=== PATIENT | male | born 1995 | race Caucasian/White ===

== ENCOUNTER 2018-01-23 16:40 | Emergency (ER) | payer SELFPAY | END 2018-01-23 17:07 | disposition home or self-care (01) | LOC: BURERS 16:40 | DX: G40.909 Epilepsy, unspecified, not intractable, without status epilepticus (principal); F41.9 Anxiety disorder, unspecified; F17.210 Nicotine dependence, cigarettes, uncomplicated; Z79.899 Other long term (current) drug therapy | CPT/HCPCS: 99283 ==

== ENCOUNTER 2018-09-13 14:44 | Emergency (ER) | payer SELFPAY ==
[2018-09-13] MEDS ORDERED: Lidocaine Viscous Sol 2% 15 ml UD Cup ONE (15:11)
== END 2018-09-13 15:42 | disposition home or self-care (01) ==
LOC: BURERS 14:44
DX: S01.512A Laceration without foreign body of oral cavity, initial encounter (principal); R56.00 Simple febrile convulsions; Z91.14 Patient's other noncompliance with medication regimen; F17.210 Nicotine dependence, cigarettes, uncomplicated; Z79.899 Other long term (current) drug therapy; X58.XXXA Exposure to other specified factors, initial encounter
CPT/HCPCS: 99283

== ENCOUNTER 2018-11-22 18:40 | Emergency (ER) | payer SELFPAY ==
[2018-11-22] MEDS ORDERED: Bupivacaine/Epinephrine 0.5% 10 ML VIAL ONE (19:16)
[2018-11-22] MEDS ORDERED: Adacel (T-DAP) 0.5 ML SYRINGE ONE (19:51)
--- NOTE | 2018-11-22 20:16 | CT ---
CT OF THE BRAIN WITHOUT CONTRAST: 11/22/18 Comparison is made with a 08/13/17 study. The ventricles are normal in size with no shift. No intracranial bleeding or extra-axial hematoma was seen. There is no sign of mass, edema, or stroke. The calvarium appears intact. There is no air flui d level in the sphenoid sinus, and the mastoid air cells are clear. All visible bony structures were unremarkable. An incidental finding is a small mucosal elevation in the lateral wall or the left maxi llary sinus that may be either a mucous retention cyst or polyp. IMPRESSION: No acute intracranial findings. POS: HOME
[2018-11-22] MEDS ORDERED: traMADol HCl 50 MG TAB ONE (20:22)
[2018-11-22] MEDS ORDERED: Ibuprofen 800 MG TAB ONE (20:23)
== END 2018-11-22 20:35 | disposition home or self-care (01) ==
LOC: BURERS 18:40
DX: S01.81XA Laceration without foreign body of other part of head, initial encounter (principal); S01.512A Laceration without foreign body of oral cavity, initial encounter; S60.519A Abrasion of unspecified hand, initial encounter; S80.819A Abrasion, unspecified lower leg, initial encounter; G40.909 Epilepsy, unspecified, not intractable, without status epilepticus; F17.210 Nicotine dependence, cigarettes, uncomplicated; Z79.899 Other long term (current) drug therapy; W18.30XA Fall on same level, unspecified, initial encounter
CPT/HCPCS: 12013; 70450; 90471; 90715; J3490

== ENCOUNTER 2018-12-03 19:19 | Emergency (ER) | payer SELFPAY | END 2018-12-03 19:57 | disposition home or self-care (01) | LOC: BURERS 19:19 | DX: S01.81XD Laceration without foreign body of other part of head, subsequent encounter (principal); G40.909 Epilepsy, unspecified, not intractable, without status epilepticus; F17.210 Nicotine dependence, cigarettes, uncomplicated; Z79.899 Other long term (current) drug therapy ==

== ENCOUNTER 2019-06-29 12:21 | Emergency (ER) | payer SELFPAY ==
[2019-06-29 12:53] LABS: #Basophils 0.1 thou/uL (0.0-0.2); #Eosinphils 0.4 thou/uL (0.0-0.7); #Lymphocytes 2.1 thou/uL (1.20-3.40); #Monocytes 0.6 thou/uL (0.11-0.59); %Eosinophils 4.6 % (0.0-10.0); %Monocytes 7.4 % (0.0-10.0); %Neutrophils 61.1 % (42.0-75.0); Hemoglobin 16.7 g/dL (14.0-18.0); Mean Corpuscular Hemoglobin 30.9 pg (27.0-31.0); Mean Corpuscular Volume 96.6 fL (78.0-98.0); Mean Platelet Volume 7.9 fL (7.4-10.4); Platelet Count 224 thou/uL (130-400); RBC Distribution Width 11.6 % (11.5-14.5); White Blood Cell (WBC) Count 8.2 thou/uL (4.8-10.8)
[2019-06-29 13:07] LABS: ALT (SGPT) 14 U/L (8-55); AST (SGOT) 15 U/L (5-34); Alkaline Phosphatase 47 U/L (40-110); Anion Gap 16 mmol/L (10-20); BUN (Urea Nitrogen) 10 mg/dL (8.9-20.6); Bilirubin, Total 0.3 mg/dL (0.2-1.2); Calc. Creatinine Clearance 0 mL/min (70-130); Calcium 9.6 mg/dL (7.8-10.44); Carbon Dioxide 22 mmol/L (22-29); Chloride 109 mmol/L (98-107); Estimated GFR-MDRD 76; Globulin 3.1 g/dL (2.4-3.5); Glucose 79 mg/dL (70-105); Potassium 4.1 mmol/L (3.5-5.1); Protein, Total 8.1 g/dL (6.0-8.3); Sodium 143 mmol/L (136-145)
--- NOTE | 2019-06-29 13:21 | CT ---
CT BRAIN WITHOUT CONTRASTS: Date: 06-29-2019 FINDINGS: The ventricles are normal in size with no sift. No intracranial bleeding or extraaxial hematoma was s een. There is no sign of mass, stroke, or edema. The skull appears intact. The visible paranasal sinu ses are clear except for some minor mucosal thickening in some of the ethmoid air cells. The mastoid air cells are clear. IMPRESSION: No acute intracranial findings. POS: HOME
--- NOTE | 2019-06-29 13:23 | CT ---
CT OF THE FACIAL BONES: Date: 06-29-[address] of the face was performed for evaluation of trauma. FINDINGS: The orbital rims, zygomatic arches, maxilla, and mandible all appeared intact. No facial fractures we re seen. There is some minor irregularities near the tips of the nasal bones but this does not really appear acute. There is some mild mucosal thickening in some of the ethmoid air cells bilaterally and what is most likely a 1.4 cm retention cyst or small polyp in the left maxillary sinus. Lisa bullo sa of each middle nasal turbinate was noted. IMPRESSION: No acute traumatic findings. POS: HOME
--- NOTE | 2019-06-29 13:26 | CT ---
CT OF THE CERVICAL SPINE: Date: 06-29-[address] of the cervical spine was done following trauma. FINDINGS: No fracture, dislocation, or disc space narrowing was seen at any cervical level. The C1-2 dens dista nce is normal and the soft tissues are normal in thickness. No significant foraminal or central canal stenosis was seen. There was a slight central bulge of the C2-3 and C3-4 discs, but neither appear t o cause any impingement. There is loss of the normal cervical lordosis which may be due to muscle spa sm. The facet joints showed no acute change. IMPRESSION: Straightening of the cervical spine, perhaps due to muscle spasm. Exam otherwise shows no acute findi ng. Preliminary results of all scans on the patient called to Dr. Camilo at 1320, 06-29-2019. POS: HOME
[2019-06-29] MEDS ORDERED: Adacel (T-DAP) 0.5 ML SYRINGE ONE (14:21)
== END 2019-06-29 14:35 | disposition home or self-care (01) ==
LOC: BURERS 12:21
DX: G40.909 Epilepsy, unspecified, not intractable, without status epilepticus (principal); S01.81XA Laceration without foreign body of other part of head, initial encounter; F17.210 Nicotine dependence, cigarettes, uncomplicated; Z79.899 Other long term (current) drug therapy; W19.XXXA Unspecified fall, initial encounter
CPT/HCPCS: 12011; 70450; 70486; 72125; 80053; 85025; 90471; 90715

== ENCOUNTER 2019-10-26 09:45 | Emergency (ER) | payer SELFPAY ==
[2019-10-26] MEDS ORDERED: Lidocaine 2% w/Epinephrine 1:200K 20 ML VIAL ONE (10:17)
--- NOTE | 2019-10-26 11:16 | CT ---
CT BRAIN NONCONTRAST: DATE: 10/26/2019 HISTORY: 24-year-old male status post head trauma, fall, due to seizure FINDINGS: There is no evidence of acute intra-axial or extra-axial hemorrhage. There is no midline shift or any other mass effect. There is no extra-axial fluid collection. There is no evidence of obstructive hydrocephalus. Calvarium is intact. There is focal soft tissue swelling at the left side of the nasio n extending into the left medial supraorbital superficial soft tissues. IMPRESSION: 1. No acute intracranial findings. 2. Left medial supraorbital superficial soft tissue acute contusion/hematoma.
== END 2019-10-26 11:20 | disposition home or self-care (01) ==
LOC: BURERS 09:45
DX: G40.909 Epilepsy, unspecified, not intractable, without status epilepticus (principal); S01.81XA Laceration without foreign body of other part of head, initial encounter; S60.312A Abrasion of left thumb, initial encounter; S60.512A Abrasion of left hand, initial encounter; S60.511A Abrasion of right hand, initial encounter; F17.210 Nicotine dependence, cigarettes, uncomplicated; Z79.899 Other long term (current) drug therapy; W19.XXXA Unspecified fall, initial encounter
CPT/HCPCS: 12013; 70450

== ENCOUNTER 2019-12-24 13:23 | Emergency (ER) | payer SELFPAY ==
[2019-12-24] MEDS ORDERED: Lidocaine 1% w/Epinephrine 1:100K 20 ML VIAL ONE (13:31)
--- NOTE | 2019-12-24 17:02 | RAD ---
RIGHT HAND THREE VIEWS: 12/24/19 No fracture was seen. All bones and joints appear normal at this time. IMPRESSION: No acute findings. POS: HOME
--- NOTE | 2019-12-24 17:02 | RAD ---
LEFT ELBOW FOUR VIEWS: 12/24/19 No fracture or joint effusion was seen. All bones appear intact. IMPRESSION: No acute findings. POS: HOME
== END 2019-12-24 14:24 | disposition home or self-care (01) ==
LOC: BURERS 13:23
DX: R56.9 Unspecified convulsions (principal); S01.81XA Laceration without foreign body of other part of head, initial encounter; S50.02XA Contusion of left elbow, initial encounter; S60.221A Contusion of right hand, initial encounter; S90.812A Abrasion, left foot, initial encounter; F17.210 Nicotine dependence, cigarettes, uncomplicated; Z79.899 Other long term (current) drug therapy; W22.8XXA Striking against or struck by other objects, initial encounter
CPT/HCPCS: 12011

== ENCOUNTER 2021-05-08 21:39 | Emergency (ER) | payer SELFPAY ==
[2021-05-08] MEDS ORDERED: Boostrix 0.5 ML (Tdap) VIAL IM ONE (21:40)
[2021-05-08] MEDS ORDERED: Lidocaine 1% w/Epinephrine 1:100K 20 ML VIAL ONE (21:55)
[2021-05-08] MEDS ORDERED: TETANUS, DIPHTHERIA TOX,ADULT (TDVAX) 0.5 ML VIAL IM ONE (21:55)
[2021-05-08] MEDS ORDERED: Cephalexin 250 MG CAP ONE (21:56)
[2021-05-08] MEDS ORDERED: Bacitracin 1 PK ONE (22:06)
[2021-05-08 23:07] LABS: #Basophils 0.1 thou/uL (0.0-0.2); #Eosinphils 0.3 thou/uL (0.0-0.7); #Lymphocytes 2.3 thou/uL (1.20-3.40); #Neutrophils 9.5 thou/uL (1.40-6.50); %Basophils 0.8 % (0.0-1.0); %Eosinophils 2.5 % (0.0-10.0); %Lymphocytes 17.3 % (21.0-51.0); %Monocytes 7.6 % (0.0-10.0); %Neutrophils 71.8 % (42.0-75.0); Mean Corpuscular HGB CONC 35.1 g/dL (32.0-36.0); Mean Corpuscular Volume 93.9 fL (78.0-98.0); Mean Platelet Volume 7.6 fL (7.4-10.4); Platelet Count 264 thou/uL (130-400); RBC Distribution Width 11.4 % (11.5-14.5); Red Blood Cell (RBC) Count 4.85 mill/uL (4.70-6.10); White Blood Cell (WBC) Count 13.2 thou/uL (4.8-10.8)
[2021-05-08 23:17] LABS: ALT (SGPT) 15 U/L (8-55); AST (SGOT) 20 U/L (5-34); Acetaminophen Less than 6.0 mcg/mL (10.0-30.0); Albumin 4.5 g/dL (3.5-5.0); Alcohol Less than 10 mg/dL (Less than 10); Alkaline Phosphatase 62 U/L (40-110); Anion Gap 16 mmol/L (10-20); BUN (Urea Nitrogen) 17 mg/dL (8.9-20.6); Bilirubin, Total 0.6 mg/dL (0.2-1.2); Calc. Creatinine Clearance 0 mL/min (70-130); Calcium 9.3 mg/dL (7.8-10.44); Carbon Dioxide 22 mmol/L (22-29); Chloride 105 mmol/L (98-107); Globulin 2.8 g/dL (2.4-3.5); Glucose 106 mg/dL (70-105); Potassium 3.3 mmol/L (3.5-5.1); Protein, Total 7.3 g/dL (6.0-8.3); Salicylate Less than 8.0 mg/dL (15.0-30.0); Sodium 140 mmol/L (136-145)
== END 2021-05-08 22:52 ==
LOC: BURERS 21:39
DX: T14.91XA Suicide attempt, initial encounter (principal); S31.113A Laceration without foreign body of abdominal wall, right lower quadrant without penetration into peritoneal cavity, initial encounter; S61.511A Laceration without foreign body of right wrist, initial encounter; S90.819A Abrasion, unspecified foot, initial encounter; S30.851A Superficial foreign body of abdominal wall, initial encounter; S30.850A Superficial foreign body of lower back and pelvis, initial encounter; S40.852A Superficial foreign body of left upper arm, initial encounter; S40.851A Superficial foreign body of right upper arm, initial encounter; S90.859A Superficial foreign body, unspecified foot, initial encounter; F17.210 Nicotine dependence, cigarettes, uncomplicated; X78.0XXA Intentional self-harm by sharp glass, initial encounter; Z23 Encounter for immunization
CPT/HCPCS: 12002; 80053; 80307; 84443; 85025; 90471; 90714; 90715

== ENCOUNTER 2021-07-09 09:25 | Emergency (ER) | payer OTHER, SELFPAY | END 2021-07-09 10:25 | disposition home or self-care (01) | LOC: BURERS 09:25 | DX: S63.91XA Sprain of unspecified part of right wrist and hand, initial encounter (principal); F17.210 Nicotine dependence, cigarettes, uncomplicated; W22.01XA Walked into wall, initial encounter ==

== ENCOUNTER 2021-08-08 23:19 | Emergency (ER) | payer SELFPAY ==
[2021-08-09 00:53] LABS: #Basophils 0.1 thou/uL (0.0-0.2); #Eosinphils 0.4 thou/uL (0.0-0.7); #Lymphocytes 1.7 thou/uL (1.20-3.40); #Monocytes 0.8 thou/uL (0.11-0.59); #Neutrophils 6.1 thou/uL (1.40-6.50); %Eosinophils 4.3 % (0.0-10.0); %Monocytes 8.8 % (0.0-10.0); Hemoglobin 15.5 g/dL (14.0-18.0); Mean Corpuscular HGB CONC 36.1 g/dL (32.0-36.0); Mean Corpuscular Hemoglobin 32.6 pg (27.0-31.0); Mean Corpuscular Volume 90.3 fL (78.0-98.0); Mean Platelet Volume 6.5 fL (7.4-10.4); Platelet Count 242 thou/uL (130-400); RBC Distribution Width 10.9 % (11.5-14.5); Red Blood Cell (RBC) Count 4.74 mill/uL (4.70-6.10); White Blood Cell (WBC) Count 9.2 thou/uL (4.8-10.8)
[2021-08-09 00:59] LABS: PTT 25.6 sec (22.9-36.1); Prothrombin Time 13.1 sec (12.0-14.7)
[2021-08-09 01:07] LABS: ALT (SGPT) 33 U/L (8-55); AST (SGOT) 20 U/L (5-34); Albumin 4.5 g/dL (3.5-5.0); Alkaline Phosphatase 61 U/L (40-110); Anion Gap 15 mmol/L (10-20); BUN (Urea Nitrogen) 9 mg/dL (8.9-20.6); Bilirubin, Total 0.5 mg/dL (0.2-1.2); Calc. Creatinine Clearance 0 mL/min (70-130); Calcium 9.3 mg/dL (7.8-10.44); Carbon Dioxide 27 mmol/L (22-29); Chloride 106 mmol/L (98-107); Globulin 3.3 g/dL (2.4-3.5); Glucose 95 mg/dL (70-105); Potassium 4.6 mmol/L (3.5-5.1); Protein, Total 7.8 g/dL (6.0-8.3); Sodium 143 mmol/L (136-145)
[2021-08-09] MEDS ORDERED: HYDROcodone/Acetaminophen 5/325 mg Tablet ONE (01:59)
[2021-08-09] MEDS ORDERED: Lidocaine 1% w/Epinephrine 1:100K 20 ML VIAL ONE (04:43)
[2021-08-09] MEDS ORDERED: Boostrix 0.5 ML (Tdap) VIAL ONE (05:07)
[2021-08-09] MEDS ORDERED: Bacitracin 1 PK ONE (05:07)
== END 2021-08-09 05:30 | disposition home or self-care (01) ==
LOC: BURERS 23:19
DX: G40.909 Epilepsy, unspecified, not intractable, without status epilepticus (principal); S02.2XXA Fracture of nasal bones, initial encounter for closed fracture; S01.81XA Laceration without foreign body of other part of head, initial encounter; F17.210 Nicotine dependence, cigarettes, uncomplicated; Z79.899 Other long term (current) drug therapy; Z23 Encounter for immunization; W22.8XXA Striking against or struck by other objects, initial encounter; W18.30XA Fall on same level, unspecified, initial encounter
CPT/HCPCS: 12002; 36415; 70160; 70450; 72125; 80053; 85025; 85610; 85730; 90471; 90715

== ENCOUNTER 2021-08-27 18:32 | Emergency (ER) | payer OTHER ==
[2021-08-27 19:02] LABS: #Basophils 0.1 thou/uL (0.0-0.2); #Eosinphils 0.4 thou/uL (0.0-0.7); #Lymphocytes 1.5 thou/uL (1.20-3.40); #Monocytes 0.6 thou/uL (0.11-0.59); #Neutrophils 4.3 thou/uL (1.40-6.50); %Basophils 0.9 % (0.0-1.0); %Eosinophils 5.5 % (0.0-10.0); %Lymphocytes 21.8 % (21.0-51.0); %Monocytes 8.1 % (0.0-10.0); %Neutrophils 63.7 % (42.0-75.0); Hemoglobin 14.2 g/dL (14.0-18.0); Mean Corpuscular Volume 94.1 fL (78.0-98.0); Mean Platelet Volume 6.1 fL (7.4-10.4); Platelet Count 240 thou/uL (130-400); RBC Distribution Width 11.5 % (11.5-14.5); Red Blood Cell (RBC) Count 4.43 mill/uL (4.70-6.10); White Blood Cell (WBC) Count 6.8 thou/uL (4.8-10.8)
[2021-08-27 19:12] LABS: Prothrombin Time 13.3 sec (12.0-14.7)
[2021-08-27 19:20] LABS: ALT (SGPT) 78 U/L (8-55); AST (SGOT) 38 U/L (5-34); Albumin 4.2 g/dL (3.5-5.0); Alkaline Phosphatase 66 U/L (40-110); Anion Gap 14 mmol/L (10-20); BUN (Urea Nitrogen) 9 mg/dL (8.9-20.6); Bilirubin, Total 0.3 mg/dL (0.2-1.2); Calc. Creatinine Clearance 0 mL/min (70-130); Calcium 8.9 mg/dL (7.8-10.44); Carbon Dioxide 26 mmol/L (22-29); Chloride 107 mmol/L (98-107); Globulin 2.8 g/dL (2.4-3.5); Glucose 95 mg/dL (70-105); Potassium 4.3 mmol/L (3.5-5.1); Sodium 143 mmol/L (136-145)
[2021-08-27] MEDS ORDERED: Lidocaine 2% w/Epinephrine 1:200K 20 ML VIAL ONE (20:05)
== END 2021-08-27 20:30 | disposition home or self-care (01) ==
LOC: BURERS 18:32
DX: S01.01XA Laceration without foreign body of scalp, initial encounter (principal); R56.9 Unspecified convulsions; F17.210 Nicotine dependence, cigarettes, uncomplicated; W20.8XXA Other cause of strike by thrown, projected or falling object, initial encounter; Y92.149 Unspecified place in prison as the place of occurrence of the external cause; Z79.899 Other long term (current) drug therapy
CPT/HCPCS: 12002; 36415; 70450; 72125; 80053; 85025; 85610

== ENCOUNTER 2022-04-30 14:43 | Emergency (ER) | payer SELFPAY ==
[2022-04-30 15:22] LABS: #Basophils 0.1 thou/uL (0.0-0.2); #Eosinphils 0.2 thou/uL (0.0-0.7); #Monocytes 0.6 thou/uL (0.11-0.59); #Neutrophils 5.3 thou/uL (1.40-6.50); %Basophils 0.9 % (0.0-1.0); %Eosinophils 2.3 % (0.0-10.0); %Lymphocytes 24.8 % (21.0-51.0); %Monocytes 7.8 % (0.0-10.0); %Neutrophils 64.2 % (42.0-75.0); Hemoglobin 17.2 g/dL (14.0-18.0); Mean Corpuscular HGB CONC 34.6 g/dL (32.0-36.0); Mean Corpuscular Hemoglobin 31.8 pg (27.0-31.0); Mean Corpuscular Volume 91.8 fl (78.0-98.0); Mean Platelet Volume 7.5 fL (7.4-10.4); Platelet Count 255 10x3/uL (130-400); RBC Distribution Width 11.2 % (11.5-14.5); White Blood Cell (WBC) Count 8.2 10x3/uL (4.8-10.8)
[2022-04-30 15:34] LABS: ALT (SGPT) 15 U/L (8-55); AST (SGOT) 12 U/L (5-34); Albumin 4.6 g/dL (3.5-5.0); Alkaline Phosphatase 60 U/L (40-110); Anion Gap 14 mmol/L (10-20); BUN (Urea Nitrogen) 11 mg/dL (8.9-20.6); Bilirubin, Total 0.7 mg/dL (0.2-1.2); Calc. Creatinine Clearance 0 mL/min (70-130); Calcium 9.4 mg/dL (7.8-10.44); Carbon Dioxide 23 mmol/L (22-29); Chloride 106 mmol/L (98-107); Estimated GFR 81; Globulin 3.2 g/dL (2.4-3.5); Glucose 84 mg/dL (70-105); Protein, Total 7.8 g/dL (6.0-8.3); Sodium 139 mmol/L (136-145)
[2022-04-30 16:19] LABS: Bilirubin Negative (Negative); Blood, Urine Negative (Negative); Clarity Clear (Clear); Glucose, Urine (Dipstick) Negative (Negative); Ketone, Urine 15 mg/dL (Negative); Leukocyte Negative (Negative); Nitrite Negative (Negative); Protein, Urine (Dipstick) Negative (Neg-Trace); Specific Gravity, Urine 1.015 (1.005-1.030); Urobilinogen 0.2 mg/dL (Less than 2); pH, Urine 5.5 (5.0-9.0)
[2022-04-30 16:29] LABS: Amphetamine Not Detected (NotDetected); Barbiturates Screen Not Detected (NotDetected); Benzodiazepine Screen Not Detected (NotDetected); Cocaine Metabolite Screen Not Detected (NotDetected); Medtox Control Line Valid? VALID (VALID); Methadone Not Detected (NotDetected); Methamphetamine Not Detected (NotDetected); Opiate Screen Not Detected (NotDetected); Oxycodone Screen Not Detected (NotDetected); Phencyclidine (PCP) Not Detected (NotDetected); THC/Cannabinoid Screen Detected (NotDetected); Tricyclic Screen Not Detected (NotDetected)
== END 2022-04-30 17:10 | disposition home or self-care (01) ==
LOC: BURERS 14:43
DX: F12.10 Cannabis abuse, uncomplicated (principal); R56.9 Unspecified convulsions; F17.200 Nicotine dependence, unspecified, uncomplicated
CPT/HCPCS: 70450; 80053; 80306; 81003; 85025; 94760

== ENCOUNTER 2022-09-05 13:09 | Emergency (ER) | payer SELFPAY | END 2022-09-05 14:45 | disposition home or self-care (01) | LOC: BURERS 13:09 | DX: G40.909 Epilepsy, unspecified, not intractable, without status epilepticus (principal); F17.200 Nicotine dependence, unspecified, uncomplicated; Z79.899 Other long term (current) drug therapy | CPT/HCPCS: 99283 ==

== ENCOUNTER 2024-11-03 11:30 | Emergency (ER) | payer OTHER ==
[2024-11-03] MEDS ORDERED: Bacitracin 1 PK ONE (12:06)
[2024-11-03] MEDS ORDERED: Divalproex Sodium DR 500 MG TAB PO SCH (12:30)
== END 2024-11-03 12:45 | disposition home or self-care (01) ==
LOC: BURERS 11:30
DX: G40.909 Epilepsy, unspecified, not intractable, without status epilepticus (principal); S02.2XXA Fracture of nasal bones, initial encounter for closed fracture; S00.83XA Contusion of other part of head, initial encounter; S00.01XA Abrasion of scalp, initial encounter; S60.512A Abrasion of left hand, initial encounter; S60.511A Abrasion of right hand, initial encounter; S50.812A Abrasion of left forearm, initial encounter; S50.811A Abrasion of right forearm, initial encounter; W18.2XXA Fall in (into) shower or empty bathtub, initial encounter; Y92.002 Bathroom of unspecified non-institutional (private) residence as the place of occurrence of the external cause
CPT/HCPCS: 70450; 70486; 72125

== ENCOUNTER 2025-01-18 10:59 | Emergency (ER) | payer OTHER ==
[2025-01-18 11:33] LABS: Hematocrit 52.6 % (42.0-52.0); Hemoglobin 17.8 g/dL (14.0-18.0); Mean Corpuscular Hemoglobin 32.7 pg (27.0-31.0); Mean Corpuscular Volume 96.9 fl (78.0-98.0); Platelet Count 324 10x3/uL (130-400); Red Blood Cell (RBC) Count 5.43 mill/uL (4.70-6.10); White Blood Cell (WBC) Count 14.4 10x3/uL (4.8-10.8)
[2025-01-18 11:53] LABS: Anion Gap 28 mmol/L (10-20); BUN (Urea Nitrogen) 13 mg/dL (8.9-20.6); Calc. Creatinine Clearance 0 mL/min (70-130); Calcium 9.5 mg/dL (7.6-10.4); Carbon Dioxide 14 mmol/L (22-29); Chloride 106 mmol/L (98-107); Glucose 101 mg/dL (70-105); Potassium 3.3 mmol/L (3.5-5.1); Sodium 145 mmol/L (136-145)
[2025-01-18 11:54] LABS: Albumin 4.7 g/dL (3.1-4.5); Alkaline Phosphatase 66 U/L (40-110); Bilirubin, Total 0.4 mg/dL (0.3-1.2); Globulin 3.7 g/dL (2.4-3.5)
[2025-01-18 11:55] LABS: ALT (SGPT) 24 U/L (Less than 45); AST (SGOT) 24 U/L (11-34); Magnesium 2.1 mg/dL (1.6-2.6)
[2025-01-18] MEDS ORDERED: Lidocaine 1%/Epinephrine 1:100K 10 ML VIAL ONE (12:14)
[2025-01-18 12:34] LABS: MDiff Complete? YES
== END 2025-01-18 12:50 | disposition home or self-care (01) ==
LOC: BURERS 10:59
DX: G40.909 Epilepsy, unspecified, not intractable, without status epilepticus (principal); S01.111A Laceration without foreign body of right eyelid and periocular area, initial encounter; F17.210 Nicotine dependence, cigarettes, uncomplicated; W19.XXXA Unspecified fall, initial encounter; Y92.239 Unspecified place in hospital as the place of occurrence of the external cause
CPT/HCPCS: 12011; 36416; 70450; 80053; 80164; 83735; 85025; 93005; 94760; 96374; J2250